=== PATIENT | male | born 1970 | race American Indian/Alaskan Native ===

== ENCOUNTER 2017-08-09 20:30 | Emergency (ER) | payer BC ==
[2017-08-09 20:48] VITALS: RESP 18; TEMP 99.5
--- NOTE | 2017-08-09 21:10 | ED PDOC ---
Arrival/HPI - General Chief Complaint: Lower Extremity Problem/Injury Time Seen by Provider: 08/09/17 20:35 Historian: Patient - History of Present Illness Narrative History of Present Illness (Text): 08/09/17 21:06 John Frye is a 46 year old male, whose past medical history includes diabetes , who presents to the ED complaining of left foot pain with associated swelling for the past few days. Patient states he was seen by his PMD earlier this week, treated for possible Gout with Prednisone with no significant relief. Patient denies any recent trauma or injury but notes he frequently goes up/down stairs while at work. Patient denies any calf pain, decreased range of motion, weakness /numbness/tingling in the extremity, fever, chills, or any other complaints. PMD: Dr. Neda White Symptom Onset: Gradual Symptom Course: Unchanged Activities at Onset: Light Context: Home Past Medical History - Provider Review Nursing Documentation Reviewed: Yes - Infectious Disease Hx of Infectious Diseases: None - Cardiac Hx Cardiac Disorders: No - Endocrine/Metabolic Hx Diabetes Mellitus Type 2: Yes - Psychiatric Hx Psychophysiologic Disorder: No Hx Anxiety: No Hx Bipolar Disorder: No Hx Depression: No Hx Emotional Abuse: No Hx Hallucinations: No Hx Panic Disorder: No Hx Post Traumatic Stress Disorder: No Hx Psychosis: No Hx Physical Abuse: No Hx Schizophrenia: No Hx Sexual Abuse: No Hx Substance Use: No - Anesthesia Hx Anesthesia: Yes Hx Anesthesia Reactions: No Hx Malignant Hyperthermia: No - Suicidal Assessment Feels Threatened In Home Enviroment: No Family/Social History - Physician Review Nursing Documentation Reviewed: Yes Family/Social History: Unknown Family HX Smoking Status: Never Smoked Hx Alcohol Use: No Hx Substance Use: No Allergies/Home Meds Allergies/Adverse Reactions: Allergies No Known Allergies Allergy (Verified 09/09/14 10:58) Home Medications: Home Meds Medication Instructions Recorded Confirmed Insulin Human (NPH)/Regular 45 units SC BID 09/09/14 08/09/17 [Novolin 70/30 (70/30 units/ml) 10 ml] traMADol [Ultram] 50 mg PO PRN PRN 08/09/17 08/09/17 Review of Systems - Physician Review All systems were reviewed & negative as marked: Yes - Review of Systems Constitutional: Normal. absent: Fevers Eyes: Normal ENT: Normal Respiratory: Normal. absent: SOB, Cough Cardiovascular: Normal. absent: Chest Pain Gastrointestinal: Normal. absent: Abdominal Pain, Diarrhea, Nausea, Vomiting Genitourinary Male: Normal. absent: Dysuria, Frequency, Hematuria, Urinary Output Changes Musculoskeletal: Other (+left foot pain). absent: Back Pain, Neck Pain Skin: Normal. absent: Rash Neurological: Normal. absent: Headache, Facial Droop Endocrine: Normal Hemo/Lymphatic: Normal Psychiatric: Normal Physical Exam Vital Signs Reviewed: Yes Vital Signs Temp Pulse Resp BP Pulse Ox 08/09/17 20:38 99.5 F 96 H 18 149/81 98 Temperature: Afebrile Blood Pressure: Normal Pulse: Regular Respiratory Rate: Normal Appearance: Positive for: Well-Appearing, Non-Toxic, Comfortable Pain Distress: None Mental Status: Positive for: Alert and Oriented X 3 - Systems Exam Head: Present: Atraumatic, Normocephalic Pupils: Present: PERRL Extroacular Muscles: Present: EOMI Conjunctiva: Present: Normal Mouth: Present: Moist Mucous Membranes Neck: Present: Normal Range of Motion. No: Meningeal Signs, MIDLINE TENDERNESS , Paraspinal Tenderness Respiratory/Chest: Present: Clear to Auscultation, Good Air Exchange. No: Respiratory Distress, Accessory Muscle Use Cardiovascular: Present: Regular Rate and Rhythm, Normal S1, S2. No: Murmurs Abdomen: No: Tenderness, Distention, Peritoneal Signs Back: Present: Normal Inspection Upper Extremity: Present: Normal Inspection. No: Cyanosis, Edema Lower Extremity: Present: NORMAL PULSES, Normal ROM, Tenderness (Tenderness to left foot, greater to area of medial malleolus), Swelling (Swelling to left foot , greater to area of medial malleolus), Neurovascularly Intact, Capillary Refill < 2 s. No: Edema, Deformity, Temperature Abnormalties Neurological: Present: GCS=15, CN II-XII Intact, Speech Normal Skin: Present: Warm, Dry, Normal Color. No: Rashes Psychiatric: Present: Alert, Oriented x 3, Normal Insight, Normal Concentration Medical Decision Making ED Course and Treatment: 08/09/17 21:06 Impression: 46 year old male c/o left foot pain/swelling for the past few days. Plan: -- XR Left Foot -- XR Left Ankle -- Labs, uric acid -- Indocin -- Reassess and disposition Progress Notes: 08/09/17 23:46 Reviewed radiology, XR Left Foot shows: Bones/joints: The foot unremarkable for bone abnormality. Longitudinal hairline fracture medial malleolus. No dislocation. Soft tissues: Diffuse soft tissue edema in the medial and lateral ankle No radiopaque foreign body. IMPRESSION: 1. Negative for acute bony abnormality of the foot 2. Longitudinal intra-articular fracture of the medial malleolus 3. Diffuse soft tissue edema XR Left Ankle shows: Bones/joints: Unremarkable. There is a longitudinal nondisplaced interarticular hairline fracture in the distal medial tibia.. No dislocation. Soft tissues: Severe soft tissue edema is present in the medial ankle. Soft tissue edema is also seen in the lateral ankle IMPRESSION: 1. Longitudinal nondisplaced intra-articular hairline fracture distal medial tibia. 2. Soft tissue edema medial and lateral ankle 08/10/17 00:30 On re-evaluation, patient feels better and is in no acute distress. I have discussed the results and plan with the patient, who expresses understanding. Patient in agreement with plan to be discharged home. Patient is stable for discharge. Patient was instructed to follow up with physician or return if symptoms worsen or new concerning symptoms arise. - Lab Interpretations Lab Results: 08/09/17 21:43 08/09/17 21:43 Lab Results 08/09/17 21:43: Sodium 141, Potassium 3.7, Chloride 102, Carbon Dioxide 28, Anion Gap 14, BUN 19, Creatinine 1.4, Est GFR ( Amer) > 60, Est GFR (Non- Af Amer) 54, Random Glucose 188 H, Uric Acid 5.7, Calcium 9.5, Total Bilirubin 0.4, AST 21, ALT 28, Alkaline Phosphatase 99, Total Protein 7.1, Albumin 3.8, Globulin 3.3, Albumin/Globulin Ratio 1.2 08/09/17 21:43: WBC 10.5, RBC 4.86, Hgb 13.9 L, Hct 39.4 L, MCV 81.1, MCH 28.6, MCHC 35.3, RDW 14.4, Plt Count 295, MPV 11.2 H 08/09/17 21:11: POC Glucose (mg/dL) 175 H - RAD Interpretation Radiology Orders: 08/09/17 21:11 ANKLE LEFT 3 VIEWS ROUTINE [RAD] Stat FOOT LEFT 3 VIEWS ROUTINE [RAD] Stat Account Service Representative: Radiologist - Medication Orders Current Medication Orders: Discontinued Medications Indomethacin (Indocin) 50 mg PO STAT STA Stop: 08/09/17 21:13 Last Admin: 08/09/17 21:57 Dose: 50 mg MAR Pain Assessment Document 08/09/17 21:57 [place] (Rec: 08/09/17 21:58 [place] [id number] Pain Reassessment Is this a pain reassessment? No Sleep Is patient sleeping during reassessment? No Presence of Pain Presence of Pain Yes Pain Scale Used Pain Scale Used Numeric Location Left, Right or Bilateral Left Upper or Lower Lower Pain Location Body Site Leg Description Intensity of Pain at present 5 - Scribe Statement The provider has reviewed the documentation as recorded by the Scribe Gina Fitzgerald All medical record entries made by the Scribe were at my direction and personally dictated by me. I have reviewed the chart and agree that the record accurately reflects my personal performance of the history, physical exam, medical decision making, and the department course for this patient. I have also personally directed, reviewed, and agree with the discharge instructions and disposition. Disposition/Present on Arrival - Present on Arrival Any Indicators Present on Arrival: No History of DVT/PE: No History of Uncontrolled Diabetes: No Urinary Catheter: No History of Decub. Ulcer: No History Surgical Site Infection Following: None - Disposition Have Diagnosis and Disposition been Completed?: Yes Diagnosis: Tibia fracture Disposition: HOME/ ROUTINE Disposition Time: 00:31 Patient Plan: Discharge Patient Problems: Current Active Problems Problem Status Onset Tibia fracture Acute Condition: GOOD Discharge Instructions (ExitCare): Shinbone Fracture (DC) Additional Instructions: Maintain leg splint/use crutches/no weight bearing on the affected area/follow up with the orthopedist this week Referrals: Cindy ERICKSON,Charlie Marks MD [Primary Care Provider] - Follow up with primary Diaz Daly III, MD [Medical Doctor] - Follow up with primary Forms: [employer] (Kinyarwanda)
[2017-08-09 21:47] LABS: HEMOGLOBIN 13.9 g/dL (14.0-18.0); MEAN CELL VOLUME 81.1 fl (80.0-105.0); MEAN CORPUSCULAR HEMOGLOBIN 28.6 pg (25.0-35.0); MEAN CORPUSCULAR HGB CONC 35.3 g/dl (31.0-37.0); MEAN PLATELET VOLUME 11.2 fl (7.0-11.0); RBC 4.86 10^6/uL (3.5-6.1); RED CELL DISTRIBUTION WIDTH 14.4 % (11.5-14.5); WHITE BLOOD COUNT 10.5 10^3/ul (4.5-11.0)
[2017-08-09 22:02] LABS: ALB/GLOB RATIO 1.2 (1.1-1.8); ALBUMIN 3.8 g/dL (3.0-4.8); ALT/SGPT 28 U/L (7-56); AST/SGOT 21 U/L (17-59); BLOOD UREA NITROGEN 19 mg/dL (7-21); CALCIUM 9.5 mg/dL (8.4-10.5); GFR AFRICAN-AMERICAN > 60; GFR NON-AFRICAN AMERICAN 54; URIC ACID 5.7 mg/dL (3.5-8.5)
[2017-08-10 03:52] VITALS: BP 143/75; PULSE 89; O2SAT 99
--- NOTE | 2017-08-10 10:26 | RAD ---
PROCEDURE: Left Ankle Radiographs. HISTORY: PAIN/SWELLING COMPARISON: None FINDINGS: BONES: Nondisplaced distal tibial fracture. The fracture is vertically oriented and there is an intra-articular component. JOINTS: Normal. No osteoarthritis. Ankle mortise maintained. Talar dome intact SOFT TISSUES: Soft tissue swelling attests to the acuity of the fracture. OTHER FINDINGS: None. IMPRESSION: Distal left tibial fracture, soft tissue swelling circumferentially involving the ankle.
--- NOTE | 2017-08-10 10:33 | RAD ---
PROCEDURE: Left Foot Radiographs. HISTORY: PAIN/SWELLING without history of trauma. COMPARISON: August 09, 2017. Left ankle documenting distal tibial fracture. FINDINGS: BONES: Normal. No fracture. JOINTS: Normal. SOFT TISSUES: Normal. OTHER FINDINGS: None. IMPRESSION: Unremarkable radiographs left foot. Concordant findings provided by [facility]
== END 2017-08-10 00:50 | disposition home or self-care (01) ==
LOC: ED 20:30
DX: S82.302A Unspecified fracture of lower end of left tibia, initial encounter for closed fracture (principal); X58.XXXA Exposure to other specified factors, initial encounter; Y92.9 Unspecified place or not applicable; E11.9 Type 2 diabetes mellitus without complications